=== PATIENT | female | born 1985 | race Caucasian/White ===

== ENCOUNTER 2016-09-14 10:20 | Observation (INO) ==
--- NOTE | 2016-09-14 10:40 | Emergency Department Note ---
Disposition Clinical Impression: Biliary colic, Intractable abdominal pain Disposition: Admitted As Inpatient Condition: Good Referrals: Mason Mobley MD [Primary Care Provider] - Forms: Work/School Release, ED Satisfaction Letter Abdominal Pain HPI - General Chief Complaint: ED Abdominal Pain Stated Complaint: Gallbladder issues Source: patient Mode of arrival: ambulatory Limitations: no limitations Nursing Notes Reviewed: Yes Vital Signs Reviewed: Yes - History of Present Illness HPI Narrative: Is a 30-year-old female with a history of biliary colic is here for pain and vomiting. She states the vomiting is he starts when she has the severe pain she has had 2 attacks in the last month. She has a elective cholecystectomy scheduled for tomorrow with Dr. Gus Ruiz. The pain started about an hour or 2 ago she gets pain more in the gastric area which she states comes and goes in waves she describes the pain as sharp stabbing intense 10 out of 10 pain. She has also had several episodes of vomiting bile-type material before arrival in the ER Pain Scale: 8 Migration to: no migration Improves with: nothing Worsens with: nothing Associated symptoms: Reports: nausea, vomiting Treatments prior to arrival: none - Related Data Home Medications Medication Instructions Recorded Confirmed Lisinopril [Zestril] 20 mg PO DAILY 06/02/16 06/02/16 cephALEXin [Keflex] 500 mg PO TID 06/02/16 06/02/16 Allergies Allergy/AdvReac Type Severity Reaction Status Date / Time prednisone Allergy Hives Verified 09/14/16 10:23 topiramate [From Topamax] Allergy Hives Verified 09/14/16 10:23 All systems ED: reviewed and negative except as stated. Constitutional: Denies: fever, chills, weakness Respiratory: Denies: cough Abdominal Pain PMH - Past Medical History Medical history: Reports: hypertension Female Surgical History: Reports: no surgical history PYROMETALLURGICAL ENGINEER history: Reports: no PYROMETALLURGICAL ENGINEER history Psychiatric history: Reports: anxiety - Social History Smoking status: Never smoker Alcohol use: Reports: none, occasionally Drug use: Reports: none Physical Exam - General Limitations: no limitations General appearance: alert - Head Head exam: atraumatic, normocephalic, normal inspection - Eye Eye exam: Present: normal appearance, PERRL, EOMI - Expanded Eye Exam Pupils: Left: reactive - ENT ENT exam: normal exam, normal oropharynx, mucous membranes moist - Expanded ENT Exam External ear exam: Present: normal external inspection Mouth exam: Present: normal external inspection Teeth exam: Present: normal inspection Throat exam: Present: normal inspection - Neck Neck exam: Present: normal inspection, full ROM, trachea midline - Chest Chest inspection: Present: normal inspection, symmetric chest wall rise - Respiratory Respiratory exam: Present: normal lung sounds bilaterally - Cardiovascular Cardiovascular exam: Present: regular rate, normal rhythm, normal heart sounds - Abdominal Exam Abdominal exam: Present: soft, normal bowel sounds. Absent: distention, guarding, rebound Abdominal tenderness: Present: epigastrium, mild - Extremities Exam Extremities exam: Present: normal inspection, full ROM. Absent: tenderness, pedal edema - Expanded Upper Extremity Exam Shoulder exam: Present: normal inspection, full ROM Arm exam: Present: normal inspection, full ROM Elbow exam: Present: normal inspection, full ROM Forearm/Wrist exam: Present: normal inspection, full ROM Hand exam: Present: normal inspection, full ROM Vascular exam: Normal: capillary refill, radial pulse - Expanded Lower Extremity Exam Hip/Pelvis exam: Present: normal inspection, full ROM Upper leg exam: Present: normal inspection, full ROM Knee exam: Present: normal inspection, full ROM Lower leg exam: Present: normal inspection, full ROM Ankle exam: Present: normal inspection, full ROM Foot/toe exam: Present: normal inspection, full ROM Neurovascular/Tendon exam: Absent: motor deficit, sensory deficit, tendon deficit - Back Exam Back exam: Present: normal inspection, full ROM. Absent: tenderness - Neurological Exam Neurological exam: Present: alert, oriented X3 - Expanded Neurological Exam Patient oriented to: Present: person, place, time Coma Scale Eye Opening: Spontaneous Coma Scale Motor Response: Obeys Commands Coma Scale Verbal Response: Oriented Coma Scale Total: 15 - Psychiatric Psychiatric exam: Present: normal affect, normal mood - Skin Skin exam: Present: warm, dry, intact, normal color Course - Consultations Consultation #1: dr. cartwright will admit to his service Time: 11:34 Vital Signs Temperature 98.2 F 09/14/16 10:20 Pulse Rate 118 09/14/16 10:20 Respiratory Rate 16 09/14/16 10:20 Blood Pressure 143/105 09/14/16 10:20 O2 Sat by Pulse Oximetry 96 09/14/16 10:20 Temperature 98.2 F 09/14/16 10:20 Pulse Rate 101 09/14/16 11:11 Respiratory Rate 18 09/14/16 11:11 Blood Pressure 129/94 09/14/16 11:11 O2 Sat by Pulse Oximetry 95 09/14/16 11:11 Oxygen Delivery Oxygen Delivery Room Air Abdominal Pain - Differential Diagnosis Differential Diagnosis: Likely: acute appendicitis, calculus of kidney, constipation, diverticulitis, gastroenteritis, small bowel obstruction - Medical Records Medical records reviewed: Yes I reviewed the patient's medical records. - Lab Data Lab results reviewed: Yes I reviewed the patient's lab results. Result diagrams: 09/14/16 11:00 09/14/16 11:00 Lab Results 09/14/16 09/14/16 Range/Units 11:00 11:00 WBC 11.5 H (4.3-11.1) K/mcL RBC 5.11 H (3.82-4.97) M/mcL Hgb 14.5 D (11.5-15.4) g/dL Hct 43.0 (35.3-44.9) % MCV 84.1 (83.0-100.0) fL MCH 28.4 (28.0-33.3) pg MCHC 33.7 (31.6-35.5) g/dL RDW 12.4 (11.5-14.5) % Plt Count 215 (140-400) K/mcL MPV 11.4 (9.4-12.4) fL Immature Gran % 0.3 (0-4) % Seg Neutrophils % 86.7 % Lymphocytes % 8.5 % Monocytes % 3.9 % Eosinophils % 0.3 % Basophils % 0.3 % Neutrophils # 10.0 H (1.6-8.9) K/mcL Lymphocytes # 1.0 (0.6-4.6) K/mcL Monocytes # 0.5 (0.0-1.3) K/mcL Eosinophils # 0.0 (0.0-0.6) K/mcL Basophils # 0.0 (0.0-0.2) K/mcL Sodium 139 (136-145) mEq/L Potassium 4.0 (3.5-4.5) mEq/L Chloride 104 (98-109) mEq/L Carbon Dioxide 25 (19-29) mEq/L BUN 11 (7-20) mg/dL Creatinine 0.77 (0.57-1.11) mg/dL Est GFR ( Amer) > 60 (> 60) Est GFR (Non-Af Amer) > 60 (> 60) BUN/Creatinine Ratio 14 (6-26) Glucose 102 H (70-99) mg/dL Calculated Osmolality 288 (280-300) Calcium 9.2 (8.6-10.8) mg/dL Total Bilirubin 0.4 (0.2-1.2) mg/dL Direct Bilirubin 0.2 (0.0-0.5) mg/dL Indirect Bilirubin 0.2 (0.0-1.2) mg/dL AST 17 (5-34) Units/L ALT 15 (0-55) Units/L Alkaline Phosphatase 87 (38-126) Units/L Serum Total Protein 7.3 (6.0-8.3) g/dL Albumin 3.9 (3.5-5.0) g/dL Globulin 3.4 (2.4-3.5) g/dL Albumin/Globulin Ratio 1.1 (1.1-2.2) Amylase 99 (25-125) Units/L Lipase 29 (8-78) Units/L
[2016-09-14] MEDS ORDERED: Ondansetron 4 MG/2 ML VIAL IVP ONE (10:46)
[2016-09-14] MEDS ORDERED: *HR* HYDROmorphone (PF) 1 MG/ML SYRINGE IVP ONE (10:47)
[2016-09-14 11:12] LABS: Basophils % 0.3 %; Eosinophils % 0.3 %; Immature Granulocytes % 0.3 % (0-4); Lymphocytes % 8.5 %; Mean Corpuscular HGB Conc 33.7 g/dL (31.6-35.5); Mean Corpuscular Hemoglobin 28.4 pg (28.0-33.3); Mean Corpuscular Volume 84.1 fL (83.0-100.0); Mean Platelet Volume 11.4 fL (9.4-12.4); Monocytes # 0.5 K/mcL (0.0-1.3); Monocytes % 3.9 %; Platelet Count 215 K/mcL (140-400); Red Blood Count 5.11 M/mcL (3.82-4.97); Red Cell Distribution Width 12.4 % (11.5-14.5); Segmented Neutrophils % 86.7 %
[2016-09-14 11:13] LABS: Hemoglobin 14.5 g/dL (11.5-15.4)
[2016-09-14 11:26] LABS: Alanine Aminotransferase 15 Units/L (0-55); Albumin 3.9 g/dL (3.5-5.0); Albumin/Globulin Ratio 1.1 (1.1-2.2); Alkaline Phosphatase 87 Units/L (38-126); Amylase 99 Units/L (25-125); Aspartate Amino Transferase 17 Units/L (5-34); BUN/Creatinine Ratio 14 (6-26); Bilirubin,Direct 0.2 mg/dL (0.0-0.5); Bilirubin,Indirect 0.2 mg/dL (0.0-1.2); Bilirubin,Total 0.4 mg/dL (0.2-1.2); Blood Urea Nitrogen 11 mg/dL (7-20); Calcium 9.2 mg/dL (8.6-10.8); Carbon Dioxide 25 mEq/L (19-29); Chloride 104 mEq/L (98-109); Globulin 3.4 g/dL (2.4-3.5); Glucose 102 mg/dL (70-99); Lipase 29 Units/L (8-78); Osmolality,Calculated 288 (280-300); Sodium 139 mEq/L (136-145); Total Protein 7.3 g/dL (6.0-8.3); eGFR For African Americans > 60 (> 60); eGFR For Non-African Americans > 60 (> 60)
[2016-09-14] MEDS ORDERED: Naloxone 0.4 MG/ML INJ IVP PRN (13:31)
[2016-09-14] MEDS ORDERED: Ondansetron 4 MG/2 ML VIAL IVP PRN (13:31)
[2016-09-14] MEDS ORDERED: *HR* HYDROmorphone (PF) 1 MG/ML SYRINGE IVP PRN (13:35)
[2016-09-14] MEDS ORDERED: *HR* OxyCODONE/APAP 5/325 TABLET PO PRN (13:36)
[2016-09-14] MEDS: 0.9 % Sodium Chloride 1,000 ML IVC SCH (14:12)
--- NOTE | 2016-09-14 14:36 | General Surg History&Physical ---
Date of Encounter: 09/14/16 Time of Encounter: 14:20 Assessment and Plan (1) Biliary dyskinesia Current Visit: Yes Status: Acute The assessment and plan as outlined above was discussed with the patient and/or family members who expressed understanding and agreement. All questions were answered. Clear liquid diet Nothing by mouth after midnight IV fluids Supportive care and pain control Incentive spirometer every 1 hour while awake Risks, benefits, alternatives, expected outcomes have been reviewed with the patient and she is agreement to proceed with a robotic-assisted cholecystectomy with Dr. Henry in the next 24 hours. Serum completed on September 132016 was negative (2) DVT prophylaxis Current Visit: Yes Status: Acute The assessment and plan as outlined above was discussed with the patient and/or family members who expressed understanding and agreement. All questions were answered. Ambulate hallways 3 times a day Intermittent compression to bilateral lower extremities loss prevention consultant to the OR for tomorrow. History of Present Illness Chief complaint: RUQ/Epigastric pain HPI: Ms. Carrasco is a 30 year old female with a past medical history significant for headaches, chronic neck pain, seasonal allergies, anxiety, hypertension. She has seen Dr. Henry in the outpatient surgical office for complaints of epigastric and right upper quadrant abdominal pain. She was scheduled for an elective cholecystectomy on 09/15/[address] Henry for biliary dyskinesia. The patient states that she has had a 2 gallbladder attacks since being seen in the surgical office. She states that she had recurrence of her symptoms this morning. She states that the pain was severe in the epigastric and right upper quadrant region. She did have nausea and vomiting without hematemesis or coffee -ground emesis. She admits to alternating diarrhea and constipation and states that her last vomiting was yesterday. Denies any melena or hematochezia. She does admit to heartburn. Denies any chills but states that she does feel fevered at times. She has not checked her temperature. She states that she did eat pizza for dinner last night and fatty foods do tend to aggravate her symptoms. She denies any shortness of breath or chest pains. We will admit her to the hospital for supportive care and plan for proceeding with her cholecystectomy as planned on 09/15/[address] Henry. Past Med Surg Social Fam HX - Past Medical History Source: patient, old records reviewed Medical history: hypertension, other (Headaches, chronic neck pain, seasonal allergies) Psychiatric history: anxiety - Past Surgical History Surgical History: other ([place] teeth extraction) - Social History Smoking Status: Never smoker Smokeless Tobacco Status: No Alcohol use: none Drug use: none Current living situation: Home - Independent Activity Level: Independent ambulation - Family History Father Hx Family Cardiac Disorders: Yes (HTN) Medications and Allergies DiphenhydraMINE [Benadryl] 25 mg PO HS PRN 09/14/16 [History] Eletriptan HBr [Relpax] 20 mg PO DAILY PRN 09/14/16 [History] LORazepam [Ativan] 0.25 - 0.5 mg PO BID PRN 09/14/16 [History] Lisinopril [Zestril] 5 mg PO DAILY 09/14/16 [History] Naproxen [Naprosyn] 500 mg PO BID PRN 09/14/16 [History] Norgestimate-Ethinyl Estradiol [Trinessa Tablet] 1 tab PO DAILY 09/14/16 [ History] Allergies prednisone Allergy (Verified 09/14/16 10:23) Hives topiramate [From Topamax] Allergy (Verified 09/14/16 10:23) Hives Review of Systems All systems PM: reviewed and no additional remarkable complaints except as stated (in the HPI) All systems PM: A 10-system review of systems was performed and is negative for pertinent findings except as documented above in the HPI. General Surgery Exam Initial Vital Signs Temp Pulse Resp BP Pulse Ox 98.2 F 118 16 143/105 96 09/14/16 10:20 09/14/16 10:20 09/14/16 10:20 09/14/16 10:20 09/14/16 10:20 - General physical appearance well developed, well nourished, no distress - Eyes normal ocular movement - ENT normal mucosa, atraumatic, normocephalic - Neck trachea midline - Respiratory normal expansion, normal respiratory effort, clear to auscultation - Cardiovascular Cardiovascular exam: Present: RRR, 15, 16 - Abdomen Abdomen general surgery: Present: bowel sounds present, soft, tender Abdominal Tenderness: Present: epigastic, RUQ - Integumentary Integumentary general surgery: Present: warm and dry - Neurologic Present: CN 2-12 grossly intact - Musculoskeletal Present: normal gait, normal posture - Psychiatric Psychiatric general surgery: Present: appropriate, oriented to person, oriented to place, oriented to time, speech is normal, memory intact Results - Labs 09/14/16 11:00 09/14/16 11:00 Abnormal lab results WBC 11.5 K/mcL (4.3-11.1) H 09/14/16 11:00 RBC 5.11 M/mcL (3.82-4.97) H 09/14/16 11:00 Neutrophils # 10.0 K/mcL (1.6-8.9) H 09/14/16 11:00 Glucose 102 mg/dL (70-99) H 09/14/16 11:00 All other labs normal. - Attending Attestation I examined this patient and my medical decision-making was reviewed with the ENVIRONMENTAL RESEARCH PROJECT MANAGER/PA/Advanced Practice Nurse/Resident Physician. I agree with the documented findings, disposition and treatment plan as described except to the extent set forth below.
--- NOTE | 2016-09-14 20:10 | Anesthesia Evaluation PreOp ---
Date of Encounter: 09/14/16 Time of Encounter: 22:07 - Past History Planned Operation: Robotic Laparoscopic Cholecystectomy Cardiac History: HTN Pulmonary History: Denies Any Significant HX DIRECTOR OF DIGITAL PLATFORMS History: Other (headaches) Other Medical History: Other (anxiety) Anesthesia History: Past Anesthesia (no prior surgery) Test: Negative (09/13/2016) Alcohol Use: none Drug use: none Medications and Allergies DiphenhydraMINE [Benadryl] 25 mg PO HS PRN 09/14/16 [History] Eletriptan HBr [Relpax] 20 mg PO DAILY PRN 09/14/16 [History] LORazepam [Ativan] 0.25 - 0.5 mg PO BID PRN 09/14/16 [History] Lisinopril [Zestril] 5 mg PO DAILY 09/14/16 [History] Naproxen [Naprosyn] 500 mg PO BID PRN 09/14/16 [History] Norgestimate-Ethinyl Estradiol [Trinessa Tablet] 1 tab PO DAILY 09/14/16 [ History] Allergies prednisone Allergy (Verified 09/14/16 10:23) Hives topiramate [From Topamax] Allergy (Verified 09/14/16 10:23) Hives - Meds/Allergy Pre-op Review Medications Reviewed: Yes Allergies Reviewed: Yes Beta Blockers on Current Med List: No Anesthesia Results - Labs 09/14/16 11:00 09/14/16 11:00 Laboratory Tests 09/13/16 17:40 Serum , Qual Negative - Imaging EKG: report reviewed (09/07/2016 SR) Anesthesia Exam Vital Signs/O2 Sat, Most Current Temp Pulse Resp BP Pulse Ox 97.5 F L 84 16 108/72 96 09/14/16 15:50 09/14/16 15:50 09/14/16 15:50 09/14/16 15:50 09/14/16 15:50 Height: 5'6''/1.68 m Weight: 147 lbs/66.678 kg Pain Scale: 0 Pain Scale Used: Numeric (1 - 10) - HEENT Pupil (Motor): EOMI Mallampati: II Teeth: Normal Oral Opening: Greater than 3 - DIRECTOR OF DIGITAL PLATFORMS LOC: Oriented DIRECTOR OF DIGITAL PLATFORMS Motor: Normal RUE, Normal LUE, Normal RLE, Normal LLE, Normal Face DIRECTOR OF DIGITAL PLATFORMS Sensory: Normal: RUE, LUE, RLE, LLE, Face - Cardiac Rhythm: Regular Murmur: None - Pulmonary Breath Sounds: bilateral Clear Respiratory Effort: Symmetrical Anesthesia Assess/Plan ASA Score: 2 Modified [place] Scale for Level of Consciousness: Cooperative, oriented, and tranquil Anesthetic Plan: General Monitoring Plan: Standard Monitors Recovery Plan: PACU
[2016-09-15] MEDS: 0.9 % Sodium Chloride 1,000 ML IVC SCH (07:21)
[2016-09-15] MEDS ORDERED: cefOXitin 2,000 MG in D5% in Water (Mini-Bag+) 100 ML IVPB ONE (08:00)
[2016-09-15] MEDS ORDERED: *HR* HYDROmorphone (PF) 1 MG/ML SYRINGE ONE (10:48)
[2016-09-15] MEDS: *HR* HYDROmorphone (PF) 1 MG/ML SYRINGE IVP PRN ×2 (10:49→11:03)
[2016-09-15] MEDS ORDERED: *HR* Labetalol 100 MG/20 ML MDV IVP PRN (10:52)
[2016-09-15] MEDS ORDERED: *HR* Promethazine 25 MG/ML VIAL IVP PRN (10:52)
[2016-09-15] MEDS ORDERED: Ondansetron 4 MG/2 ML VIAL IVP ONE (10:52)
--- NOTE | 2016-09-15 11:50 | Discharge Summary ---
Date of Encounter: 09/15/16 Time of Encounter: 11:47 - Discharge Diagnosis (1) Biliary dyskinesia Priority: Primary Status: Resolved - Discharge Medications Prescriptions: OxyCODONE/APAP 5/325 [Percocet 5/325 MG] 1 each PO Q6HR PRN #30 tablet PRN Reason: Pain Ibuprofen [Motrin] 800 mg PO Q8HR PRN #50 tablet PRN Reason: Pain Docusate [Colace] 100 mg PO BID #30 capsule Home Medications: DiphenhydraMINE [Benadryl] 25 mg PO HS PRN 09/14/16 [History] Eletriptan HBr [Relpax] 20 mg PO DAILY PRN 09/14/16 [History] LORazepam [Ativan] 0.25 - 0.5 mg PO BID PRN 09/14/16 [History] Lisinopril [Zestril] 5 mg PO DAILY 09/14/16 [History] Naproxen [Naprosyn] 500 mg PO BID PRN 09/14/16 [History] Norgestimate-Ethinyl Estradiol [Trinessa Tablet] 1 tab PO DAILY 09/14/16 [ History] Docusate [Colace] 100 mg PO BID #30 capsule 09/15/16 [Rx] Ibuprofen [Motrin] 800 mg PO Q8HR PRN #50 tablet 09/15/16 [Rx] OxyCODONE/APAP 5/325 [Percocet 5/325 MG] 1 each PO Q6HR PRN #30 tablet 09/15/16 [Rx] Allergies/Adverse Reactions: Allergies prednisone Allergy (Verified 09/14/16 10:23) Hives topiramate [From Topamax] Allergy (Verified 09/14/16 10:23) Hives General Surgery Exam Initial Vital Signs Temp Pulse Resp BP Pulse Ox 98.2 F 118 16 143/105 96 09/14/16 10:20 09/14/16 10:20 09/14/16 10:20 09/14/16 10:20 09/14/16 10:20 Date of admission: 09/14/16 11:45 Primary care physician: Mason Mobley MD [facility] Anticipated date of discharge: 09/15/16 - Patient Status Disposition: Home, Self-Care Condition: Good Overall status at discharge: patient is back to baseline - Discharge Instructions Follow Up With: Rizwan Henry DO [Partnered Physician] - 09/26/16 4:30 pm (surgery follow-up) Mason Mobley MD [Primary Care Provider] - (as needed) Additional Instructions: #1 may shower, no tub bath for 2 weeks #2 wash incisions with soap and water and pat dry daily #3 no lifting, pushing, pulling more than 15 pounds for the next 2 weeks #4 no driving until off narcotics for 24 hours and able to safely react in the car #5 may climb stairs - Diet and Activity Activity: other (See additional instructions above) Diet: advance to your usual diet - Hospital Course Hospital course: Ms. Carrasco is a 30 year old female presented to the hospital with complaints of RUQ abdominal pain with associated nausea/vomiting. She has been seen and evaluated by Dr. Henry in the outpatient surgical office for recurrent diliary dyskinesia. She was admitted to the hospital for supportive care and pain control. She was taken to the operating room for a robotic assisted cholecystectomy with Dr. Henry. We will begin discharge planning to home when meets discharge critieria including vitals signs are stable and afebrile, tolerating liquids without nausea/vomiting, pain is well controlled, voiding and ambulating without difficulty. Plan for outpatient follow-up in the next 10- 14 days. - Time Spent with Patient Total time spent providing and/or coordinating discharge services: Less than 30 minutes Labs on day of discharge: Labs from last 24 hours 09/15/16 05:36 POC Glucose 87 - Attending Attestation I examined this patient and my medical decision-making was reviewed with the BENDING ROLL HAND/PA/Advanced Practice Nurse/Resident Physician. I agree with the documented findings, disposition and treatment plan as described except to the extent set forth below.
[2016-09-15] MEDS ORDERED: *HR* HYDROmorphone (PF) 1 MG/ML SYRINGE IVP PRN (11:51)
[2016-09-15] MEDS ORDERED: *HR* OxyCODONE/APAP 5/325 TABLET PO PRN (11:51)
[2016-09-15] MEDS ORDERED: (Eletriptan Hbr [Relpax] 20 MG) PO PRN (11:51)
[2016-09-15] MEDS ORDERED: Naloxone 0.4 MG/ML INJ IVP PRN (11:51)
[2016-09-15] MEDS ORDERED: *HR* LORazepam 0.5 MG TABLET PO PRN (11:51)
[2016-09-15] MEDS ORDERED: 0.9 % Sodium Chloride 1,000 ML IVC SCH (11:51)
[2016-09-15] MEDS ORDERED: Ondansetron 4 MG/2 ML VIAL IVP PRN (11:51)
[2016-09-15 13:19] VITALS: BP 126/80
--- NOTE | 2016-09-20 11:27 | Operative Note ---
Date of procedure: 09/20/16 Pre-op diagnosis: Biliary dyskinesia Post-op diagnosis: same Procedure: Endoscopic cholecystectomy cholangiogram Anesthesia: JUSTOA Surgeon: Rizwan Henry Estimated blood loss (cc): 5 Condition: stable Disposition: same day Procedure in Detail: After informed consent this patient was taken the operating room placed supine position. After adequate sedation anesthesia the abdomen was prepped and draped. A proper timeout was performed. Two towel clamps are placed at the umbilicus and a Veres needle was inserted into the abdomen. A 5 mm incision was made at the umbilicus. A 12 mm incision was made in the subxiphoid region. Two 5 mm incisions were made in the right upper quadrant that were 4 finger breadths and 6 finger breadths below the costal margin. The gallbladder was identified, retracted anteriorly and cephalad, and the infundibulum was skeletonized. The cystic duct was easily identified and was dissected free. A ductotomy was created in the cystic duct. A taut catheter was placed within the cystic duct and clipped. A cholangiogram was performed. Contrast filled the cystic duct, common hepatic duct, hepatic radicles, and the distal common bile duct. There was flow of contrast into the duodenum. Once this was confirmed the clippers removed, the taut catheter was removed as well, and the cystic duct was clipped distally. The cystic duct was then transected with scissors. The gallbladder was resected off the liver surface. There was excellent hemostasis. The gallbladder was then retrieved through the 12 mm cannula site. At this point the abdomen was suctioned dry and the pneumoperitoneum was then evacuated. All ports were removed. The 12 mm cannula site was closed with an 0 Vicryl suture in [id number] fashion. The skin was closed with 4-0 Vicryl suture. Dermabond was placed as well. All instrument counts and needle counts are correct in the operation. The patient tolerated the procedure well and was transferred to the PACU in stable condition.
== END 2016-09-15 13:20 | disposition home or self-care (01) ==
LOC: 3ANU 10:20 → EMEROO 10:20 → 3ANU 12:08
PROVIDERS: ADMIT Surgery; ATTEND Surgery

== ENCOUNTER 2016-09-23 05:18 | Inpatient (IN) ==
[2016-09-23] MEDS ORDERED: Dicyclomine 20 MG/2 ML AMPUL IM STA (05:26)
[2016-09-23] MEDS ORDERED: Ondansetron 4 MG/2 ML VIAL IVP STA (05:26)
[2016-09-23] MEDS ORDERED: 0.9 % Sodium Chloride 1,000 ML IVC ONE (05:36)
[2016-09-23] MEDS ORDERED: *HR* HYDROmorphone (PF) 1 MG/ML SYRINGE IVP ONE ×2 (05:38→07:34)
--- NOTE | 2016-09-23 05:39 | Emergency Department Note ---
Disposition Clinical Impression: Abdominal pain, Vomiting Disposition: Still a Patient Condition: Good Referrals: NO,PCP [Non-Partnered Physician] - Forms: ED Satisfaction Letter Time of Disposition: 07:27 General Adult HPI - General Chief complaint: ED Nausea/Vomiting/Diarrhea Stated complaint: s/p gall bladder surgery sat// N/V// abd pain Time Seen by Provider: 09/23/16 05:25 Source: patient Limitations: no limitations Nursing Notes Reviewed: Yes Vital Signs Reviewed: Yes - History of Present Illness HPI Narrative: Female patient complaining of 24 hours of nausea vomiting and diarrhea. She is status post cholecystectomy one week ago. Dr. Henry did her surgery. She reports a possible fever at home. She states she is staying ear thermometer that was a child's that read greater than 102. She is also complaining of some upper epigastric pain. She states this is consistent with pain that she has had before her gallbladder surgery. Pain Scale: 10 - Related Data Home Medications Medication Instructions Recorded Confirmed DiphenhydraMINE [Benadryl] 25 mg PO HS PRN 09/14/16 09/14/16 Eletriptan HBr [Relpax] 20 mg PO DAILY PRN 09/14/16 09/14/16 LORazepam [Ativan] 0.25 - 0.5 mg PO BID PRN 09/14/16 09/14/16 Lisinopril [Zestril] 5 mg PO DAILY 09/14/16 09/14/16 Naproxen [Naprosyn] 500 mg PO BID PRN 09/14/16 09/14/16 Norgestimate-Ethinyl Estradiol 1 tab PO DAILY 09/14/16 09/14/16 [Trinessa Tablet] Previous Rx's Medication Instructions Recorded Docusate [Colace] 100 mg PO BID #30 capsule 09/15/16 Ibuprofen [Motrin] 800 mg PO Q8HR PRN #50 tablet 09/15/16 OxyCODONE/APAP 5/325 [Percocet 1 each PO Q6HR PRN #30 tablet 09/15/16 5/325 MG] Allergies Allergy/AdvReac Type Severity Reaction Status Date / Time prednisone Allergy Hives Verified 09/23/16 05:24 topiramate [From Topamax] Allergy Hives Verified 09/23/16 05:24 All systems ED: reviewed and negative except as stated. Constitutional: Reports: fever. Denies: chills Eyes: Denies: vision change ENT ED: Denies: congestion Cardiovascular: Denies: chest pain, palpitations, syncope Respiratory: Denies: cough, dyspnea, wheezes Gastrointestinal: Reports: abdominal pain (Epigastric), nausea, vomiting (For 24 hours), diarrhea Genitourinary: Denies: urgency, dysuria, frequency, hematuria Musculoskeletal: Denies: back pain, neck pain Integumentary: Denies: rash Neurological: Denies: headache, weakness Past Medical History - Past Medical History Medical history: Reports: hypertension, other Surgical history: Reports: other ([place] teeth extraction) Psychiatric history: Reports: anxiety 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 Absent: scleral icterus - ENT ENT exam: normal exam, normal oropharynx - Neck Neck exam: Present: normal inspection, full ROM - Chest Chest inspection: Present: normal inspection, symmetric chest wall rise. Absent : tenderness - Respiratory Respiratory exam: Present: normal lung sounds bilaterally. Absent: respiratory distress, wheezes - Cardiovascular Cardiovascular exam: Present: regular rate, normal rhythm, normal heart sounds - Abdominal Exam Abdominal exam: Present: soft, tenderness (Epigastric region as well as suprapubic and left lower quadrant.). Absent: distention, guarding, rebound, rigidity, organomegaly - Extremities Exam Extremities exam: Present: normal inspection, full ROM, normal capillary refill. Absent: tenderness, pedal edema - Back Exam Back exam: Present: normal inspection, full ROM. Absent: tenderness - Neurological Exam Neurological exam: Present: alert, oriented X3 - Psychiatric Psychiatric exam: Present: normal affect, normal mood - Skin Skin exam: Present: warm, dry, intact, normal color Course Course Narrative: Female patient presenting to the emergency department complaining of 24-hour history of abdominal pain nausea vomiting and diarrhea. She is status post cholecystectomy of one week ago. She states Dr. Alaniz did her surgery. She states she had no complications until about 24 hours ago. She states she cannot keep anything down at this time. She states that she has intermittent very sharp pain in her upper abdomen. She points to her epigastric area. Patient appears to be in pain. She is leaning forward holding her abdomen and a vomit bag. She denies any shortness of breath or chest pain. She reports a possible fever at home of 102.3. She states that they used an ear thermometer for a child and she understands that this could have been off. She is not febrile while she is here however she is tachycardic. Her lung sounds are clear heart tones are normal. Her abdomen is soft however she guards and complains of excruciating pain when palpating her epigastric area. She has no overt right upper quadrant or left upper quadrant pain. She does have some tenderness over her suprapubic region and left lower quadrant. We will give patient pain medication as well as antinausea medication. We will get a basic lab workup and scan patient's abdomen. She is agreeable with this plan. - Consultations Consultation #1: Assessment with Dr. Henry. He states he has not the on-call physician. I discussed that it was his patient. He expressed understanding. He states he will call Dr. Moyer. Vital Signs Temperature 97.5 F L 09/23/16 05:20 Pulse Rate 134 09/23/16 05:20 Respiratory Rate 18 09/23/16 05:20 Blood Pressure 150/76 09/23/16 05:20 O2 Sat by Pulse Oximetry 95 09/23/16 05:20 Temperature 97.5 F L 09/23/16 05:20 Pulse Rate 86 09/23/16 06:44 Respiratory Rate 16 09/23/16 06:44 Blood Pressure 116/72 09/23/16 06:44 O2 Sat by Pulse Oximetry 95 09/23/16 05:20 Oxygen Delivery Oxygen Delivery Room Air Medical Decision Making - Lab Data Result diagrams: 09/23/16 05:40 09/23/16 05:40 Lab Results 09/23/16 09/23/16 09/23/16 Range/Units 05:40 05:40 05:40 WBC 15.3 H (4.3-11.1) K/mcL RBC 5.37 H (3.82-4.97) M/mcL Hgb 15.3 (11.5-15.4) g/dL Hct 44.6 (35.3-44.9) % MCV 83.1 (83.0-100.0) fL MCH 28.5 (28.0-33.3) pg MCHC 34.3 (31.6-35.5) g/dL RDW 12.7 (11.5-14.5) % Plt Count 300 (140-400) K/mcL MPV 10.8 (9.4-12.4) fL Immature Gran % 0.4 (0-4) % Seg Neutrophils % 88.2 % Lymphocytes % 7.9 % Monocytes % 3.1 % Eosinophils % 0.2 % Basophils % 0.2 % Neutrophils # 13.5 H (1.6-8.9) K/mcL Lymphocytes # 1.2 (0.6-4.6) K/mcL Monocytes # 0.5 (0.0-1.3) K/mcL Eosinophils # 0.0 (0.0-0.6) K/mcL Basophils # 0.0 (0.0-0.2) K/mcL Immature Plt Fraction 6.0 (1.1-6.1) % Sodium 138 (136-145) mEq/L Potassium 3.6 (3.5-4.5) mEq/L Chloride 104 (98-109) mEq/L Carbon Dioxide 23 (19-29) mEq/L BUN 10 (7-20) mg/dL Creatinine 0.81 (0.57-1.11) mg/dL Est GFR ( Amer) > 60 (> 60) Est GFR (Non-Af Amer) > 60 (> 60) BUN/Creatinine Ratio 12 (6-26) Glucose 138 H (70-99) mg/dL Calculated Osmolality 287 (280-300) Calcium 9.4 (8.6-10.8) mg/dL Total Bilirubin 0.7 (0.2-1.2) mg/dL AST 16 (5-34) Units/L ALT 18 (0-55) Units/L Alkaline Phosphatase 92 (38-126) Units/L Serum Total Protein 7.8 (6.0-8.3) g/dL Albumin 3.9 (3.5-5.0) g/dL Globulin 3.9 H (2.4-3.5) g/dL Albumin/Globulin Ratio 1.0 L (1.1-2.2) Lipase 29 (8-78) Units/L Urine Color Dark Yellow (Yellow) Urine Clarity Clear (Clear) Urine pH 6.0 (5.0-8.0) pH Units Ur Specific [place] > 1.030 H (1.010-1.025) Urine Protein 30 H (Neg-Trace) mg/dL Urine Glucose (UA) Normal (Normal) mg/dL Urine Ketones Trace H (Negative) mg/dL Urine Blood Negative (Negative) Urine Nitrite Negative (Negative) Urine Bilirubin Negative (Negative) Urine Urobilinogen Normal (Normal) mg/dL Ur Leukocyte Esterase Negative (Negative) Urine Microscopic RBC 0-3 (0-3) per hpf Urine Microscopic WBC 0-3 (0-3) per hpf Ur Squamous Epith Cells Many H (None-Few) per lpf Urine Bacteria None Seen (None-Few) per hpf Hyaline Casts Few (None-Few) per lpf Ur Culture Indicated? NO (NO) - Radiology Data Radiology results reviewed: Yes I reviewed the patient's radiology results. Abdomen/Pelvis CT 09/23/16 05:39 IMPRESSION: 1. Findings are most consistent with an acute enterocolitis, likely an active Crohn's flare up/inflammatory bowel disease, though an infectious enterocolitis is also a diagnostic consideration. There is no evidence of pneumatosis, perforation, free air, or bowel obstruction. There is a moderate amount of free fluid within the right lower quadrant pelvis, though no walled-off abscess is seen. 2. Patient status post cholecystectomy with mild postoperative fat stranding the gallbladder fossa, though no evidence of a postoperative fluid collection or biloma. D/ / Devang Man MD / Devang Man MD Interpreting Provider: Devang Man MD Attestation Statement - Attestation Attestation: I examined this patient and my medical decision-making was reviewed with the Resident Physician. I agree with the documented findings, disposition and treatment plan as described except to the extent set forth below. One week status post laparoscopic cholecystectomy. Has vomiting and diarrhea. She is having flatus. Temperature 102.3 at home, afebrile here. Has an appointment to see her surgeon on Sunday, so she could not wait any longer. Complains of diffuse abdominal pain, worse in the right upper quadrant and epigastrium. Having trouble keeping fluids down. Emesis is yellow, nonbloody, nonbilious. No symptoms of GI bleeding. On exam, she is sitting up holding an emesis bag appears somewhat uncomfortable but nontoxic. Surgical wounds are clean, dry and intact. Abdomen is diffusely tender without peritonitis, most tender in the right upper quadrant and epigastrium. Bowel sounds are not audible. Workup initiated, treatment initiated. Workup will likely not be completed before changes shift, anticipate handing patient off to Dr. La at 0700.
[2016-09-23 05:52] LABS: Basophils % 0.2 %; Eosinophils % 0.2 %; Hematocrit 44.6 % (35.3-44.9); Hemoglobin 15.3 g/dL (11.5-15.4); Immature Granulocytes % 0.4 % (0-4); Lymphocytes # 1.2 K/mcL (0.6-4.6); Lymphocytes % 7.9 %; Mean Corpuscular HGB Conc 34.3 g/dL (31.6-35.5); Mean Corpuscular Hemoglobin 28.5 pg (28.0-33.3); Mean Corpuscular Volume 83.1 fL (83.0-100.0); Mean Platelet Volume 10.8 fL (9.4-12.4); Monocytes # 0.5 K/mcL (0.0-1.3); Monocytes % 3.1 %; Neutrophils # 13.5 K/mcL (1.6-8.9); Platelet Count 300 K/mcL (140-400); Red Blood Count 5.37 M/mcL (3.82-4.97); Red Cell Distribution Width 12.7 % (11.5-14.5); Segmented Neutrophils % 88.2 %
[2016-09-23 06:05] LABS: Alanine Aminotransferase 18 Units/L (0-55); Albumin 3.9 g/dL (3.5-5.0); Alkaline Phosphatase 92 Units/L (38-126); Aspartate Amino Transferase 16 Units/L (5-34); BUN/Creatinine Ratio 12 (6-26); Bilirubin,Total 0.7 mg/dL (0.2-1.2); Blood Urea Nitrogen 10 mg/dL (7-20); Calcium 9.4 mg/dL (8.6-10.8); Carbon Dioxide 23 mEq/L (19-29); Chloride 104 mEq/L (98-109); Globulin 3.9 g/dL (2.4-3.5); Glucose 138 mg/dL (70-99); Lipase 29 Units/L (8-78); Osmolality,Calculated 287 (280-300); Potassium 3.6 mEq/L (3.5-4.5); Sodium 138 mEq/L (136-145); Total Protein 7.8 g/dL (6.0-8.3); eGFR For African Americans > 60 (> 60); eGFR For Non-African Americans > 60 (> 60)
[2016-09-23 06:45] LABS: Bilirubin,Urine Negative (Negative); Blood,Urine Negative (Negative); Clarity,Urine Clear (Clear); Color,Urine Dark Yellow (Yellow); Glucose,Urine (UA) Normal (Normal); Ketones,Urine Trace mg/dL (Negative); Leukocyte Esterase,Urine Negative (Negative); Nitrite,Urine Negative (Negative); Protein,Urine 30 mg/dL (Neg-Trace); Specific Gravity,Urine > 1.030 (1.010-1.025); Urobilinogen,Urine Normal (Normal)
[2016-09-23 06:48] LABS: Bacteria,Urine None Seen per hpf (None-Few); Hyaline Casts,Urine Few per lpf (None-Few); RBC,Urine 0-3 per hpf (0-3); Squamous Epithelial Cell,Urine Many per lpf (None-Few); WBC,Urine 0-3 per hpf (0-3)
--- NOTE | 2016-09-23 07:34 | Emergency Department Note ---
Disposition Clinical Impression: Enterocolitis Abdominal pain Qualifiers: Abdominal location: unspecified location Qualified Code(s): R10.9 - Unspecified abdominal pain Vomiting Qualifiers: Vomiting type: unspecified Vomiting Intractability: non-intractable Nausea presence: unspecified Qualified Code(s): R11.10 - Vomiting, unspecified Disposition: Admitted As Inpatient Condition: Good Referrals: NO,PCP [Non-Partnered Physician] - Forms: ED Satisfaction Letter Time of Disposition: 08:09 General Adult HPI - General Chief complaint: ED Nausea/Vomiting/Diarrhea Stated complaint: s/p gall bladder surgery sat// N/V// abd pain Time Seen by Provider: 09/23/16 05:25 Source: patient Limitations: no limitations - History of Present Illness Pain Scale: 5 - Related Data Home Medications Medication Instructions Recorded Confirmed DiphenhydraMINE [Benadryl] 25 mg PO HS PRN 09/14/16 09/14/16 Eletriptan HBr [Relpax] 20 mg PO DAILY PRN 09/14/16 09/14/16 LORazepam [Ativan] 0.25 - 0.5 mg PO BID PRN 09/14/16 09/14/16 Lisinopril [Zestril] 5 mg PO DAILY 09/14/16 09/14/16 Naproxen [Naprosyn] 500 mg PO BID PRN 09/14/16 09/14/16 Norgestimate-Ethinyl Estradiol 1 tab PO DAILY 09/14/16 09/14/16 [Trinessa Tablet] Previous Rx's Medication Instructions Recorded Docusate [Colace] 100 mg PO BID #30 capsule 09/15/16 Ibuprofen [Motrin] 800 mg PO Q8HR PRN #50 tablet 09/15/16 OxyCODONE/APAP 5/325 [Percocet 1 each PO Q6HR PRN #30 tablet 09/15/16 5/325 MG] Allergies Allergy/AdvReac Type Severity Reaction Status Date / Time prednisone Allergy Hives Verified 09/23/16 05:24 topiramate [From Topamax] Allergy Hives Verified 09/23/16 05:24 Constitutional: Reports: fever. Denies: chills Eyes: Denies: vision change ENT ED: Denies: congestion Cardiovascular: Denies: chest pain, palpitations, syncope Respiratory: Denies: cough, dyspnea, wheezes Gastrointestinal: Reports: abdominal pain (Epigastric), nausea, vomiting (For 24 hours), diarrhea Genitourinary: Denies: urgency, dysuria, frequency, hematuria Musculoskeletal: Denies: back pain, neck pain Integumentary: Denies: rash Neurological: Denies: headache, weakness Past Medical History - Past Medical History Medical history: Reports: hypertension, other Surgical history: Reports: other ([place] teeth extraction) Psychiatric history: Reports: anxiety TRACKMAN history: 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 TRACKMAN history - Social History Smoking Status: Never smoker Smokeless Tobacco Status: No Alcohol use: Reports: none Drug use: Reports: none Physical Exam - General Limitations: no limitations General appearance: alert, in no apparent distress Course Vital Signs Temperature 97.5 F L 09/23/16 05:20 Pulse Rate 134 09/23/16 05:20 Respiratory Rate 18 09/23/16 05:20 Blood Pressure 150/76 09/23/16 05:20 O2 Sat by Pulse Oximetry 95 09/23/16 05:20 Temperature 97.5 F L 09/23/16 05:20 Pulse Rate 90 09/23/16 08:07 Respiratory Rate 16 09/23/16 08:07 Blood Pressure 127/83 09/23/16 08:07 O2 Sat by Pulse Oximetry 98 09/23/16 08:07 Oxygen Delivery Oxygen Delivery Room Air Medical Decision Making - Lab Data Result diagrams: 09/23/16 05:40 09/23/16 05:40 Lab Results 09/23/16 09/23/16 09/23/16 Range/Units 05:40 05:40 05:40 WBC 15.3 H (4.3-11.1) K/mcL RBC 5.37 H (3.82-4.97) M/mcL Hgb 15.3 (11.5-15.4) g/dL Hct 44.6 (35.3-44.9) % MCV 83.1 (83.0-100.0) fL MCH 28.5 (28.0-33.3) pg MCHC 34.3 (31.6-35.5) g/dL RDW 12.7 (11.5-14.5) % Plt Count 300 (140-400) K/mcL MPV 10.8 (9.4-12.4) fL Immature Gran % 0.4 (0-4) % Seg Neutrophils % 88.2 % Lymphocytes % 7.9 % Monocytes % 3.1 % Eosinophils % 0.2 % Basophils % 0.2 % Neutrophils # 13.5 H (1.6-8.9) K/mcL Lymphocytes # 1.2 (0.6-4.6) K/mcL Monocytes # 0.5 (0.0-1.3) K/mcL Eosinophils # 0.0 (0.0-0.6) K/mcL Basophils # 0.0 (0.0-0.2) K/mcL Immature Plt Fraction 6.0 (1.1-6.1) % Sodium 138 (136-145) mEq/L Potassium 3.6 (3.5-4.5) mEq/L Chloride 104 (98-109) mEq/L Carbon Dioxide 23 (19-29) mEq/L BUN 10 (7-20) mg/dL Creatinine 0.81 (0.57-1.11) mg/dL Est GFR ( Amer) > 60 (> 60) Est GFR (Non-Af Amer) > 60 (> 60) BUN/Creatinine Ratio 12 (6-26) Glucose 138 H (70-99) mg/dL Calculated Osmolality 287 (280-300) Calcium 9.4 (8.6-10.8) mg/dL Total Bilirubin 0.7 (0.2-1.2) mg/dL AST 16 (5-34) Units/L ALT 18 (0-55) Units/L Alkaline Phosphatase 92 (38-126) Units/L Serum Total Protein 7.8 (6.0-8.3) g/dL Albumin 3.9 (3.5-5.0) g/dL Globulin 3.9 H (2.4-3.5) g/dL Albumin/Globulin Ratio 1.0 L (1.1-2.2) Lipase 29 (8-78) Units/L Serum , Qual (Negative) Urine Color Dark Yellow (Yellow) Urine Clarity Clear (Clear) Urine pH 6.0 (5.0-8.0) pH Units Ur Specific [place] > 1.030 H (1.010-1.025) Urine Protein 30 H (Neg-Trace) mg/dL Urine Glucose (UA) Normal (Normal) mg/dL Urine Ketones Trace H (Negative) mg/dL Urine Blood Negative (Negative) Urine Nitrite Negative (Negative) Urine Bilirubin Negative (Negative) Urine Urobilinogen Normal (Normal) mg/dL Ur Leukocyte Esterase Negative (Negative) Urine Microscopic RBC 0-3 (0-3) per hpf Urine Microscopic WBC 0-3 (0-3) per hpf Ur Squamous Epith Cells Many H (None-Few) per lpf Urine Bacteria None Seen (None-Few) per hpf Hyaline Casts Few (None-Few) per lpf Ur Culture Indicated? NO (NO) 09/23/16 Range/Units 07:21 WBC (4.3-11.1) K/mcL RBC (3.82-4.97) M/mcL Hgb (11.5-15.4) g/dL Hct (35.3-44.9) % MCV (83.0-100.0) fL MCH (28.0-33.3) pg MCHC (31.6-35.5) g/dL RDW (11.5-14.5) % Plt Count (140-400) K/mcL MPV (9.4-12.4) fL Immature Gran % (0-4) % Seg Neutrophils % % Lymphocytes % % Monocytes % % Eosinophils % % Basophils % % Neutrophils # (1.6-8.9) K/mcL Lymphocytes # (0.6-4.6) K/mcL Monocytes # (0.0-1.3) K/mcL Eosinophils # (0.0-0.6) K/mcL Basophils # (0.0-0.2) K/mcL Immature Plt Fraction (1.1-6.1) % Sodium (136-145) mEq/L Potassium (3.5-4.5) mEq/L Chloride (98-109) mEq/L Carbon Dioxide (19-29) mEq/L BUN (7-20) mg/dL Creatinine (0.57-1.11) mg/dL Est GFR ( Amer) (> 60) Est GFR (Non-Af Amer) (> 60) BUN/Creatinine Ratio (6-26) Glucose (70-99) mg/dL Calculated Osmolality (280-300) Calcium (8.6-10.8) mg/dL Total Bilirubin (0.2-1.2) mg/dL AST (5-34) Units/L ALT (0-55) Units/L Alkaline Phosphatase (38-126) Units/L Serum Total Protein (6.0-8.3) g/dL Albumin (3.5-5.0) g/dL Globulin (2.4-3.5) g/dL Albumin/Globulin Ratio (1.1-2.2) Lipase (8-78) Units/L Serum , Qual Negative (Negative) Urine Color (Yellow) Urine Clarity (Clear) Urine pH (5.0-8.0) pH Units Ur Specific [place] (1.010-1.025) Urine Protein (Neg-Trace) mg/dL Urine Glucose (UA) (Normal) mg/dL Urine Ketones (Negative) mg/dL Urine Blood (Negative) Urine Nitrite (Negative) Urine Bilirubin (Negative) Urine Urobilinogen (Normal) mg/dL Ur Leukocyte Esterase (Negative) Urine Microscopic RBC (0-3) per hpf Urine Microscopic WBC (0-3) per hpf Ur Squamous Epith Cells (None-Few) per lpf Urine Bacteria (None-Few) per hpf Hyaline Casts (None-Few) per lpf Ur Culture Indicated? (NO) Attestation Statement - Attestation Attestation: Care of patient assumed from at 7 AM pending discussion with the on- call surgeon. The case was discussed with by the resident physician Dr. Bnaks and the surgeon agrees to evaluate the patient in the emergency department 08:05: Dr. Moyer has evaluated the patient in the emergency department and excepts patient for admission to his service
[2016-09-23] MEDS ORDERED: *HR* HYDROmorphone (PF) 1 MG/ML SYRINGE IVP PRN (08:13)
--- NOTE | 2016-09-23 08:24 | General Surg History&Physical ---
<Lula Thompson - Last Filed: 09/23/16 21:04> Date of Encounter: 09/23/16 Time of Encounter: 08:23 Assessment and Plan (1) Enterocolitis Current Visit: Yes Status: Acute The patient presents with signs and symptoms of enterocolitis with clinical findings that correlate to CT scan of the abdomen. Patient recently underwent lap cholecystectomy with Dr. Henry and had prior antibiotic therapy which may predispose her to C.diff enterocolitis; other enteropathogens can not be excluded at this time. Pending laboratory studies. Inflammatory changes on CT warrant further investigation into Crohns disease. Pending antibody testing. Patient does have positive bowel sounds on exam most likely correlating to chronic etiology. Abdomen/Pelvis CT 09/23/16 05:39 IMPRESSION: 1. Findings are most consistent with an acute enterocolitis, likely an active Crohn's flare up/inflammatory bowel disease, though an infectious enterocolitis is also a diagnostic consideration. There is no evidence of pneumatosis, perforation, free air, or bowel obstruction. There is a moderate amount of free fluid within the right lower quadrant and pelvis, though no walled-off abscess is seen. 2. Patient is status post cholecystectomy with mild postoperative fat stranding within the gallbladder fossa, though no evidence of a postoperative fluid collection or biloma. Plan: Infectious vs Inflammatory enterocolitis Bowel rest. Nothing by mouth. (May consider TPN on Sunday. Will need PICC.) Supportive care and pain control IV fluids at [75] mL per hour IV antibiotics Zosyn 3.375 Q8hr Oral antibiotics metronidazole 500 mg PO Q6hr (May add lactobacillus tablets to encourage normal healthy segundo) PPI therapy: Patoprazole 40 mg IVP daily Daily activity encouraged Repeat abdominal exams daily to assess for clinical progress. Would like to treat patient with IV methylprednisolone 12-15 every 6 hours; however, patient states that she is not sure about steroids as she had a round of them before in conjunction with her Topamax and she had acute episode of delirium. Patient will decide tomorrow whether she would like to initiate therapy. - Pending markers for IBD: MPO/PR3 (ANCA) antibodies -Stool panel pending: ova/parasites/enteropathogens -May consider PICC consult and TPN Sunday09/25/16 GI referral Sunday: Patient will need further investigation into etiology of enterocolitis. She may require wireless capsule endoscopy or possibly colonoscopy with intubation of the ileum and to allow further visualization to evaluate for mucosal inflammation/ulceration/skip lesions. The assessment and plan as outlined above was discussed with the patient and/or family members who expressed understanding and agreement. All questions were answered. (2) Status post cholecystectomy Current Visit: Yes Status: Acute The assessment and plan as outlined above was discussed with the patient and/or family members who expressed understanding and agreement. All questions were answered. History of Present Illness Chief complaint: Abdominal pain HPI: Ms. Carrasco is a 30 year old female with a past medical history of hypertension and anxiety and migraines who presents for evaluation of abdominal pain. Patient describes that approximately 24 hours ago she developed sudden onset severe abdominal tenderness described as sharp stabbing pains that occur intermittently at 10 out of 10 pain with persistent crampy abdominal pain at 8- 9 out of 10 pain described as originating in the epigastrium and radiating across the abdomen diffusely. There are no alleviating factors. Exacerbated with movement/ambulating. Associated symptoms include nausea, vomiting multiple 5-6 over the last 24 hours described as stomach contents/acid bile, diarrhea nonbloody and without pus over the past 24 hours since sudden onset of pain. Relevant history includes status post cholecystectomy one week ago with prior antibiotic use. Patient denies: Camping, hiking, ingesting foul water, exposure to new animals or new pets, uncooked seafood or shellfish, ingestion of home canned goods recently. Past Med Surg Social Fam HX - Past Medical History Medical history: hypertension, other Psychiatric history: anxiety - Past Surgical History Surgical History: other - Social History Smoking Status: Never smoker Smokeless Tobacco Status: No Alcohol use: none Drug use: none - Family History Father Hx Family Cardiac Disorders: Yes (HTN) Medications and Allergies DiphenhydraMINE [Benadryl] 25 mg PO HS PRN 09/14/16 [History] Eletriptan HBr [Relpax] 20 mg PO DAILY PRN 09/14/16 [History] LORazepam [Ativan] 0.25 - 0.5 mg PO BID PRN 09/14/16 [History] Lisinopril [Zestril] 5 mg PO DAILY 09/14/16 [History] Naproxen [Naprosyn] 500 mg PO BID PRN 09/14/16 [History] Norgestimate-Ethinyl Estradiol [Trinessa Tablet] 1 tab PO DAILY 09/14/16 [ History] Docusate [Colace] 100 mg PO BID #30 capsule 09/15/16 [Rx] Ibuprofen [Motrin] 800 mg PO Q8HR PRN #50 tablet 09/15/16 [Rx] OxyCODONE/APAP 5/325 [Percocet 5/325 MG] 1 tab PO Q6HR PRN 09/23/16 [History] Allergies prednisone Allergy (Verified 09/23/16 05:24) Hives topiramate [From Topamax] Allergy (Verified 09/23/16 05:24) Hives Review of Systems All systems PM: A 10-system review of systems was performed and is negative for pertinent findings except as documented above in the HPI. - Constitutional anorexia, chills - EENT Nose, mouth and throat: no dysphagia, no hoarseness, no throat swelling, no tongue swelling - Cardiovascular no chest pain, no dyspnea, no lightheadedness - Respiratory no cough, no hemoptysis, no wheezing - Gastrointestinal abdominal pain, bloating, cramping, diarrhea, nausea, vomiting, no belching, no dysphagia, no hematemesis, no hematochezia, no melena - Musculoskeletal no myalgias - Integumentary no erythema, no pruritus, no rash, no jaundice - Neurological no confusion, no convulsions, no disequilibrium, no syncope - Psychiatric anxiety - Endocrine no polydipsia, no polyphagia, no polyuria - Hematologic/Lymphatic no easy bleeding, no easy bruising, no lymphadenopathy - Allergic/Immunologic no wheezing General Surgery Exam Initial Vital Signs Temp Pulse Resp BP Pulse Ox 97.5 F L 134 18 150/76 95 09/23/16 05:20 09/23/16 05:20 09/23/16 05:20 09/23/16 05:20 09/23/16 05:20 - General physical appearance well developed, well nourished, severe distress, severe pain. negative: jaundice - ENT normal pinna, normal nares, normal mucosa, atraumatic, normocephalic, CN 2-12 grossly intact - Neck no masses, trachea midline, no venous distension - Respiratory normal expansion, normal respiratory effort, clear to auscultation - Cardiovascular Cardiovascular exam: Present: RRR, no murmurs/rubs/gallops. Absent: JVD - Abdomen Abdomen general surgery: Present: bowel sounds present, soft, tender Abdominal Tenderness: Present: diffusely - Incision Incision: Present: clean and dry, intact - Integumentary Integumentary general surgery: Present: warm and dry, no abnormal pigmentation. Absent: rash - Neurologic Present: CN 2-12 grossly intact, normal coordination, normal sensation - Musculoskeletal Present: normal gait, normal posture - Psychiatric Psychiatric general surgery: Present: A&Ox3, speech is normal, memory intact, tearful Results - Labs 09/23/16 05:40 09/23/16 05:40 Abnormal lab results WBC 15.3 K/mcL (4.3-11.1) H 09/23/16 05:40 RBC 5.37 M/mcL (3.82-4.97) H 09/23/16 05:40 Neutrophils # 13.5 K/mcL (1.6-8.9) H 09/23/16 05:40 Glucose 138 mg/dL (70-99) H 09/23/16 05:40 Globulin 3.9 g/dL (2.4-3.5) H 09/23/16 05:40 Albumin/Globulin Ratio 1.0 (1.1-2.2) L 09/23/16 05:40 Ur Specific [place] > 1.030 (1.010-1.025) H 09/23/16 05:40 Urine Protein 30 mg/dL (Neg-Trace) H 09/23/16 05:40 Urine Ketones Trace mg/dL (Negative) H 09/23/16 05:40 Ur Squamous Epith Cells Many per lpf (None-Few) H 09/23/16 05:40 Diabetes panel 09/23/16 Range/Units 05:40 Sodium 138 (136-145) mEq/L Potassium 3.6 (3.5-4.5) mEq/L Chloride 104 (98-109) mEq/L Carbon Dioxide 23 (19-29) mEq/L BUN 10 (7-20) mg/dL Creatinine 0.81 (0.57-1.11) mg/dL Glucose 138 H (70-99) mg/dL Calcium 9.4 (8.6-10.8) mg/dL AST 16 (5-34) Units/L ALT 18 (0-55) Units/L Alkaline Phosphatase 92 (38-126) Units/L Albumin 3.9 (3.5-5.0) g/dL Calcium panel 09/23/16 Range/Units 05:40 Calcium 9.4 (8.6-10.8) mg/dL Albumin 3.9 (3.5-5.0) g/dL Pituitary panel 09/23/16 Range/Units 05:40 Sodium 138 (136-145) mEq/L Potassium 3.6 (3.5-4.5) mEq/L Chloride 104 (98-109) mEq/L Carbon Dioxide 23 (19-29) mEq/L BUN 10 (7-20) mg/dL Creatinine 0.81 (0.57-1.11) mg/dL Glucose 138 H (70-99) mg/dL Calcium 9.4 (8.6-10.8) mg/dL Adrenal panel 09/23/16 Range/Units 05:40 Sodium 138 (136-145) mEq/L Potassium 3.6 (3.5-4.5) mEq/L Chloride 104 (98-109) mEq/L Carbon Dioxide 23 (19-29) mEq/L BUN 10 (7-20) mg/dL Creatinine 0.81 (0.57-1.11) mg/dL Glucose 138 H (70-99) mg/dL Calcium 9.4 (8.6-10.8) mg/dL Total Bilirubin 0.7 (0.2-1.2) mg/dL AST 16 (5-34) Units/L ALT 18 (0-55) Units/L Alkaline Phosphatase 92 (38-126) Units/L Albumin 3.9 (3.5-5.0) g/dL All other labs normal. <Arden Moyer - Last Filed: 09/24/16 06:37> Date of Encounter: 09/23/16 History of Present Illness HPI: Ms. Carrasco is a 30 year old female Review of Systems All systems PM: A 10-system review of systems was performed and is negative for pertinent findings except as documented above in the HPI. General Surgery Exam Initial Vital Signs Temp Pulse Resp BP Pulse Ox 97.5 F L 134 18 150/76 95 09/23/16 05:20 09/23/16 05:20 09/23/16 05:20 09/23/16 05:20 09/23/16 05:20 Results - Labs 09/23/16 05:40 09/23/16 05:40 Abnormal lab results WBC 15.3 K/mcL (4.3-11.1) H 09/23/16 05:40 RBC 5.37 M/mcL (3.82-4.97) H 09/23/16 05:40 Neutrophils # 13.5 K/mcL (1.6-8.9) H 09/23/16 05:40 ESR 30 mm/hr (0-15) H 09/23/16 05:40 Glucose 138 mg/dL (70-99) H 09/23/16 05:40 C-Reactive Protein 15 mg/L (Less than 5) H 09/23/16 05:40 Globulin 3.9 g/dL (2.4-3.5) H 09/23/16 05:40 Albumin/Globulin Ratio 1.0 (1.1-2.2) L 09/23/16 05:40 Ur Specific [place] > 1.030 (1.010-1.025) H 09/23/16 05:40 Urine Protein 30 mg/dL (Neg-Trace) H 09/23/16 05:40 Urine Ketones Trace mg/dL (Negative) H 09/23/16 05:40 Ur Squamous Epith Cells Many per lpf (None-Few) H 09/23/16 05:40 All other labs normal. - Attending Attestation I examined this patient and my medical decision-making was reviewed with the BICYCLE DESIGNER/PA/Advanced Practice Nurse/Resident Physician. I agree with the documented findings, disposition and treatment plan as described except to the extent set forth below. The patient is seen and evaluated. She is having abdominal discomfort similar to the pain that she had prior to cholecystectomy. I suspect that she has 2 independent problems. The first was an abnormal gallbladder which has been addressed the second is inflammatory enterocolitis. It is unclear whether this is infectious or autoimmune in origin. We will initiate a complete workup. She will be started on them. Antibiotic therapy as well as empiric steroid therapy. Further treatment plan based on her workup which is underway Arden Moyer MD FACS
[2016-09-23] MEDS: 0.9 % Sodium Chloride 1,000 ML IVC SCH ×2 (09:19→23:54)
[2016-09-23] MEDS: Piperacillin/Tazobactam 3.375 GM in D5% in Water (Mini-Bag+) 100 ML IVPB SCH ×3 (09:20→23:53)
[2016-09-23] MEDS: Pantoprazole 40 MG VIAL IVP SCH (09:21)
[2016-09-23] MEDS: Ondansetron 4 MG/2 ML VIAL IVP PRN (10:21)
[2016-09-23] MEDS: metroNIDAZOLE 500 MG TABLET PO SCH ×3 (12:17→23:53)
[2016-09-23 13:01] LABS: % Iron Saturation 27 % (15-50); Iron 128 mcg/dL (50-170); Transferrin 341 mg/dL (180-382)
[2016-09-23] MEDS: *HR* HYDROcodone/Acet 5/325 mg TABLET PO PRN (23:53)
[2016-09-24] MEDS: metroNIDAZOLE 500 MG TABLET PO SCH ×4 (05:17→23:09)
[2016-09-24 06:58] LABS: BUN/Creatinine Ratio 12 (6-26); Blood Urea Nitrogen 9 mg/dL (7-20); Calcium 8.1 mg/dL (8.6-10.8); Carbon Dioxide 24 mEq/L (19-29); Chloride 106 mEq/L (98-109); Glucose 84 mg/dL (70-99); Osmolality,Calculated 284 (280-300); Potassium 3.3 mEq/L (3.5-4.5); Sodium 138 mEq/L (136-145); eGFR For African Americans > 60 (> 60); eGFR For Non-African Americans > 60 (> 60)
[2016-09-24 07:06] LABS: Basophils % 0.4 %; Eosinophils # 0.1 K/mcL (0.0-0.6); Eosinophils % 1.2 %; Immature Granulocytes % 0.2 % (0-4); Lymphocytes # 2.4 K/mcL (0.6-4.6); Lymphocytes % 48.6 %; Mean Corpuscular HGB Conc 32.9 g/dL (31.6-35.5); Mean Corpuscular Hemoglobin 28.4 pg (28.0-33.3); Mean Corpuscular Volume 86.4 fL (83.0-100.0); Mean Platelet Volume 11.6 fL (9.4-12.4); Monocytes # 0.3 K/mcL (0.0-1.3); Neutrophils # 2.2 K/mcL (1.6-8.9); Platelet Count 212 K/mcL (140-400); Red Blood Count 4.05 M/mcL (3.82-4.97); Red Cell Distribution Width 12.8 % (11.5-14.5); Segmented Neutrophils % 43.6 %
--- NOTE | 2016-09-24 08:35 | General Surgery Progress Note ---
Date of Encounter: 09/24/16 Time of Encounter: 07:00 - Assessment and Plan (1) Enterocolitis Current Visit: Yes Status: Acute Infectious versus inflammatory enterocolitis The patient presents with signs and symptoms of enterocolitis with clinical findings that correlate to CT scan of the abdomen. Patient recently underwent lap cholecystectomy with Dr. Henry and had prior antibiotic therapy which may predispose her to C.diff enterocolitis; other enteropathogens can not be excluded at this time. Pending laboratory studies. Inflammatory changes on CT warrant further investigation into Crohns disease. Pending antibody testing. Patient does have positive bowel sounds on exam most likely correlating to chronic etiology. Bowel rest. Nothing by mouth. (May consider TPN on Sunday. Will need PICC.) Supportive care and pain control IV fluids at [75] mL per hour IV antibiotics Zosyn 3.375 Q8hr Oral antibiotics metronidazole 500 mg PO Q6hr (May add lactobacillus tablets to encourage normal healthy segundo) PPI therapy: Patoprazole 40 mg IVP daily Daily activity encouraged Repeat abdominal exams daily to assess for clinical progress. IV methylprednisolone 12-15 every 6 hours - Pending markers for IBD: MPO/PR3 (ANCA) antibodies -Stool panel pending: ova/parasites/enteropathogens -May consider PICC consult and TPN Sunday09/25/16 GI referral Sunday: Patient will need further investigation into etiology of enterocolitis. She may require wireless capsule endoscopy or possibly colonoscopy with intubation of the ileum and to allow further visualization to evaluate for mucosal inflammation/ulceration/skip lesions. The assessment and plan as outlined above was discussed with the patient and/or family members who expressed understanding and agreement. All questions were answered. (2) Status post cholecystectomy Current Visit: Yes Status: Acute Subjective Patient reports: no new complaints, feels better, still having pain, pain is less, voiding w/o difficulty, flatus, bowel movement, diarrhea, afebrile Narrative: Patient was seen and examined. She states that she feels much better today having less abdominal pain and tenderness although she still describes continued bloating and multiple episodes of loose stools that are small, urgent , slightly orange in color. Discussed starting methylprednisolone. Patient had her questions answered and she is agreeable to begin therapy today. Initially, she was hesitant because she thought she may have had an acute delirium event possibly related to prednisone in the past however, she is unsure because she was taking multiple medications at the time. No acute events overnight. Patient's been nothing by mouth. She has been up ambulating and using the restroom/voiding without difficulty. She reports that she still has nausea and belching. on physical examination patient's abdomen is soft minimal tender to palpation when compared to yesterday. There is no rebound, rigidity, guarding/peritoneal signs. Nonsurgical abdomen. Vitals stable. Afebrile. Patient is in good spirits and is very pleasant natured although she does have significant anxiety. Objective Vital Signs - Last 8 Hours Temp Pulse Resp BP Pulse Ox 09/24/16 08:15 98.4 F 62 18 109/70 98 09/24/16 03:46 98.0 F 68 14 115/78 98 09/24/16 00:39 98.7 F 75 14 114/76 97 Intake and Output 09/23/16 09/24/16 09/24/16 23:59 07:59 15:59 Intake Total 1100 / 1100 100 / 100 0 / 0 Output Total 150 / 150 300 / 300 0 / 0 Balance 950 / 950 -200 / -200 0 / 0 Intake: IV Fluids 1100 / 1100 100 / 100 0.9 % Sodium Chloride 1, 1000 / 1000 000 ML @ 75 mls/hr IVC . [id number] [facility] Rx#: [id number] Zosyn 3.375 GM In 100 / 100 100 / 100 Dextrose 5% (Minibag+) 100 ML 100 ML @ 25 mls/hr IVPB Q8HR [facility] Rx#: [id number] Oral 0 / 0 0 / 0 0 / 0 Output: Urine 150 / 150 300 / 300 0 / 0 Other: Weight 66.735 kg Blood Glucose* 83 85 Patient Weight 09/24/16 23:59 Weight 66.735 kg - General physical appearance well developed, well nourished, no distress, moderate pain - Eyes PERRL, normal ocular movement - ENT normal mucosa, atraumatic, normocephalic, CN 2-12 grossly intact - Neck Neck exam: no masses, trachea midline - Respiratory normal expansion, normal respiratory effort, clear to auscultation - Cardiovascular Cardiovascular exam: Present: RRR, no murmurs/rubs/gallops. Absent: JVD - Abdomen Abdomen: Present: bowel sounds present, soft, tender Abdominal Tenderness: diffusely - Integumentary no rash, no abnormal pigmentation - Neurologic CN 2-12 grossly intact, normal coordination, normal sensation - Musculoskeletal normal gait, normal posture - Psychiatric oriented to time, oriented to person, oriented to place, speech is normal, memory intact - Labs 09/25/16 05:01 09/25/16 05:01 Diabetes panel 09/24/16 Range/Units 05:49 Sodium 138 (136-145) mEq/L Potassium 3.3 L (3.5-4.5) mEq/L Chloride 106 (98-109) mEq/L Carbon Dioxide 24 (19-29) mEq/L BUN 9 (7-20) mg/dL Creatinine 0.78 (0.57-1.11) mg/dL Glucose 84 (70-99) mg/dL Calcium 8.1 L (8.6-10.8) mg/dL Calcium panel 09/24/16 Range/Units 05:49 Calcium 8.1 L (8.6-10.8) mg/dL Pituitary panel 09/24/16 Range/Units 05:49 Sodium 138 (136-145) mEq/L Potassium 3.3 L (3.5-4.5) mEq/L Chloride 106 (98-109) mEq/L Carbon Dioxide 24 (19-29) mEq/L BUN 9 (7-20) mg/dL Creatinine 0.78 (0.57-1.11) mg/dL Glucose 84 (70-99) mg/dL Calcium 8.1 L (8.6-10.8) mg/dL Adrenal panel 09/24/16 Range/Units 05:49 Sodium 138 (136-145) mEq/L Potassium 3.3 L (3.5-4.5) mEq/L Chloride 106 (98-109) mEq/L Carbon Dioxide 24 (19-29) mEq/L BUN 9 (7-20) mg/dL Creatinine 0.78 (0.57-1.11) mg/dL Glucose 84 (70-99) mg/dL Calcium 8.1 L (8.6-10.8) mg/dL Consult Discharge Plan - Plan Referrals: Mason Mobley MD [Primary Care Provider] - - Attending Attestation I examined this patient and my medical decision-making was reviewed with the OUTSIDE CUTTER HAND/PA/Advanced Practice Nurse/Resident Physician. I agree with the documented findings, disposition and treatment plan as described except to the extent set forth below. The patient is seen and evaluated on morning rounds. Her abdominal examination is tremendously improved. She is having flatus. There is no tenderness or peritoneal signs. She is started on steroid therapy today after appropriate testing. We will continue her antibiotics. We will plan on discussing her case on Sunday with her primary surgeon and plain clothes police officer. If she remains pain-free we will start clear liquids later this afternoon. Arden Moyer MD FACS
[2016-09-24 08:46] LABS: Hemoglobin 11.5 g/dL (11.5-15.4)
[2016-09-24] MEDS: Piperacillin/Tazobactam 3.375 GM in D5% in Water (Mini-Bag+) 100 ML IVPB SCH ×3 (10:18→23:09)
[2016-09-24] MEDS: Pantoprazole 40 MG VIAL IVP SCH (10:23)
[2016-09-24] MEDS: MethylPREDNISolone 40 MG/ML VIAL IVP SCH ×3 (13:15→23:09)
[2016-09-24] MEDS: Acetaminophen 325 MG TABLET PO PRN (15:00)
[2016-09-24] MEDS: 0.9 % Sodium Chloride 1,000 ML IVC SCH (15:47)
[2016-09-24] MEDS: Ondansetron 4 MG/2 ML VIAL IVP PRN (15:52)
[2016-09-25] MEDS: Acetaminophen 325 MG TABLET PO PRN (03:41)
[2016-09-25] MEDS: metroNIDAZOLE 500 MG TABLET PO SCH ×4 (05:20→23:06)
[2016-09-25] MEDS: 0.9 % Sodium Chloride 1,000 ML IVC SCH ×2 (05:20→20:20)
[2016-09-25] MEDS: MethylPREDNISolone 40 MG/ML VIAL IVP SCH ×4 (05:20→23:06)
[2016-09-25 06:01] LABS: Hematocrit 37.3 % (35.3-44.9); Hemoglobin 12.6 g/dL (11.5-15.4); Immature Granulocytes % 0.2 % (0-4); Lymphocytes # 0.9 K/mcL (0.6-4.6); Lymphocytes % 17.1 %; Mean Corpuscular HGB Conc 33.8 g/dL (31.6-35.5); Mean Corpuscular Hemoglobin 28.7 pg (28.0-33.3); Mean Platelet Volume 11.6 fL (9.4-12.4); Monocytes # 0.1 K/mcL (0.0-1.3); Neutrophils # 4.4 K/mcL (1.6-8.9); Platelet Count 243 K/mcL (140-400); Red Blood Count 4.39 M/mcL (3.82-4.97); Segmented Neutrophils % 80.7 %
[2016-09-25 06:16] LABS: BUN/Creatinine Ratio 6 (6-26); Blood Urea Nitrogen 5 mg/dL (7-20); Calcium 9.2 mg/dL (8.6-10.8); Carbon Dioxide 24 mEq/L (19-29); Chloride 108 mEq/L (98-109); Glucose 145 mg/dL (70-99); Osmolality,Calculated 290 (280-300); Potassium 3.6 mEq/L (3.5-4.5); Sodium 140 mEq/L (136-145); eGFR For African Americans > 60 (> 60); eGFR For Non-African Americans > 60 (> 60)
[2016-09-25] MEDS: Piperacillin/Tazobactam 3.375 GM in D5% in Water (Mini-Bag+) 100 ML IVPB SCH ×3 (08:19→23:07)
[2016-09-25] MEDS: Pantoprazole 40 MG VIAL IVP SCH (08:21)
--- NOTE | 2016-09-25 13:25 | Gastroenterology Consult Note ---
<LeonZaire valente Ivana - Last Filed: 09/25/16 13:22> Date of Encounter: 09/25/16 Time of Encounter: 11:30 - Assessment and plan (1) Abdominal pain Current Visit: Yes Status: Acute Assessment and plan: CT A/P most consistent with an acute enterocolitis, likely an active Crohn's flare up/inflammatory bowel disease, though an infectious enterocolitis is also a diagnostic consideration. Dr. Gastelum to review images today. Check ASCA and C.diff. ANCA pending. ESR 30 and CRP 15. Qualifiers: Abdominal location: generalized Qualified Code(s): R10.84 - Generalized abdominal pain (2) Enterocolitis Current Visit: Yes Status: Acute Assessment and plan: CT A/P most consistent with an acute enterocolitis, likely an active Crohn's flare up/inflammatory bowel disease, though an infectious enterocolitis is also a diagnostic consideration. Dr. Gastelum to review images today. Check ASCA and C.diff. ANCA pending. ESR 30 and CRP 15. (3) Status post cholecystectomy Current Visit: Yes Status: Acute - Time Spent With Patient Total time spent is greater than 50% in coordination of care (as documented) at patient's floor/unit and/or counseling patient: GI History of Present Illness - Data of Consult Patient: new to practice Consult date: 09/25/16 Requesting Physician: Arden Moyer MD - Consult Narrative Reason for consult: Inflammatory vs infectious enterocolitis History of present illness: Ms. Carrasco is a 30 year old female with PMHx of HTN and anxiety who presented to the ED for evaluation of abdominal pain, nausea, vomiting, and diarrhea. She is s/p cholecystectomy on 09/20/[address] Henry with prior antibiotic use. She reports vomiting 5-6 times in the 24 hours prior to admission. Her abdomen was diffusely tender, mostly in the RUQ and epigastric area. CT A/P most consistent with an acute enterocolitis, likely an active Crohn's flare up/ inflammatory bowel disease, though an infectious enterocolitis is also a diagnostic consideration. Procedures: None NSAIDs: Ibuprofen Anticoagulation: None Past Med Surg Social Fam HX - Past Medical History Medical history: hypertension, other Psychiatric history: anxiety - Past Surgical History Surgical History: other - Social History Smoking Status: Never smoker Smokeless Tobacco Status: No Alcohol use: none Drug use: none - Family History Father Hx Family Cardiac Disorders: Yes (HTN) - Gastrointestinal Gastrointestinal: Present: as per HPI - Constitutional Constitutional: as per HPI - EENT Eyes: as per HPI Ears: Present: as per HPI Nose, mouth and throat: Present: as per HPI - Cardiovascular Cardiovascular ROS: Present: as per HPI - Respiratory Respiratory IM: Present: as per HPI - Genitourinary Genitourinary: Absent: change in color, Urinary frequency - Neurological ROS Neurological GI: Present: as per HPI - Hematologic/Lymphatic Hematologic/Lymphatic pediatric: Present: as per HPI - Musculoskeletal Musculoskeletal ROS GI: Present: as per HPI - Integumentary Integumentary GI: Present: as per HPI - Psychiatric ROS Psychiatric GI: Present: as per HPI - Endocrine Endocrine IM: Present: as per HPI - Constitutional Vitals: Temp Pulse Resp BP Pulse Ox 98.2 F 80 18 131/81 98 09/25/16 10:55 09/25/16 10:55 09/25/16 10:55 09/25/16 10:55 09/25/16 10:55 General appearance: Present: cooperative, A&O X 3, no acute distress, answers questions appropriately - Head Head exam: Present: atraumatic, normocephalic - Eye Eye exam: Present: normal appearance, sclera anicteric - ENT ENT exam: Present: mucous membranes moist - Neck Neck exam general surgery: Present: normal inspection, trachea midline - Respiratory Respiratory exam: Present: CTAB. Absent: rales, rhonchi, wheezes - Cardiovascular Cardiovascular exam: Present: RRR, +S1, +S2 - GI/Abdominal GI/Abdominal exam: Present: soft, tenderness (Generalized), no peritoneal signs. Absent: distended, firm, guarding Additional comments: surgical scars s/p lap digna - Rectal Rectal exam: Present: deferred - Extremities Exam Extremities exam: Present: warm - Neurological Exam Neurological exam: Present: no focal deficits - Psychiatric Psychiatric exam: Present: normal affect, normal mood - Skin Skin exam: Present: dry, intact, normal color, warm Results - Labs CBC & Chem 7: 09/25/16 05:01 09/25/16 05:01 Labs: Last Result ESR 30 mm/hr (0-15) H 09/23/16 05:40 Calcium 9.2 mg/dL (8.6-10.8) 09/25/16 05:01 Iron 128 mcg/dL (50-170) 09/23/16 05:40 % Saturation 27 % (15-50) 09/23/16 05:40 Transferrin 341 mg/dL (180-382) 09/23/16 05:40 C-Reactive Protein 15 mg/L (Less than 5) H 09/23/16 05:40 Vitamin B12 213 pg/mL (213-816) 09/23/16 05:40 Folate 15.0 ng/mL (7.0-31.4) 09/23/16 05:40 Entire Visit Hgb 12.6 g/dL (11.5-15.4) 09/25/16 05:01 Hct 37.3 % (35.3-44.9) 09/25/16 05:01 Total Bilirubin 0.7 mg/dL (0.2-1.2) 09/23/16 05:40 AST 16 Units/L (5-34) 09/23/16 05:40 ALT 18 Units/L (0-55) 09/23/16 05:40 Lipase 29 Units/L (8-78) 09/23/16 05:40 Folate 15.0 ng/mL (7.0-31.4) 09/23/16 05:40 Consult Discharge Plan - Plan Referrals: Mason Mobley MD [Primary Care Provider] - <Livia Gastelum - Last Filed: 09/25/16 17:40> Date of Encounter: 09/25/16 Time of Encounter: 17:00 - Time Spent With Patient Total time spent is greater than 50% in coordination of care (as documented) at patient's floor/unit and/or counseling patient: GI History of Present Illness - Data of Consult Requesting Physician: Arden Moyer MD - Consult Narrative History of present illness: Ms. Carrasco is a 30 year old female - Constitutional Vitals: Temp Pulse Resp BP Pulse Ox 98.2 F 85 16 130/76 97 09/25/16 14:47 09/25/16 14:47 09/25/16 14:47 09/25/16 14:47 09/25/16 14:47 Results - Labs CBC & Chem 7: 09/25/16 05:01 09/25/16 05:01 Labs: Last Result ESR 30 mm/hr (0-15) H 09/23/16 05:40 Calcium 9.2 mg/dL (8.6-10.8) 09/25/16 05:01 Iron 128 mcg/dL (50-170) 09/23/16 05:40 % Saturation 27 % (15-50) 09/23/16 05:40 Transferrin 341 mg/dL (180-382) 09/23/16 05:40 C-Reactive Protein 15 mg/L (Less than 5) H 09/23/16 05:40 Vitamin B12 213 pg/mL (213-816) 09/23/16 05:40 Folate 15.0 ng/mL (7.0-31.4) 09/23/16 05:40 Entire Visit Hgb 12.6 g/dL (11.5-15.4) 09/25/16 05:01 Hct 37.3 % (35.3-44.9) 09/25/16 05:01 Total Bilirubin 0.7 mg/dL (0.2-1.2) 09/23/16 05:40 AST 16 Units/L (5-34) 09/23/16 05:40 ALT 18 Units/L (0-55) 09/23/16 05:40 Lipase 29 Units/L (8-78) 09/23/16 05:40 Folate 15.0 ng/mL (7.0-31.4) 09/23/16 05:40 - Attending Attestation I examined this patient and my medical decision-making was reviewed with the HOT SAW HELPER/PA/Advanced Practice Nurse/Resident Physician. I agree with the documented findings, disposition and treatment plan as described except to the extent set forth below. Patient seen. Patient with a history of symptomatic disease status post gallbladder surgery. Now was admitted because of the recurrence of her epigastric abdominal pain and had a CAT scan done that showed colitis and also terminal ileitis. Per patient usually she goes to the toilet 3 times a week denies any long-standing history of diarrhea and no other GI symptom other than her recurrent pain due to gallbladder disease. Denies family history of Crohn disease. At This point the finding on the CAT scans are nonspecific but we will have to rule out underlying IBD. Patient will like to have a colonoscopy done as an outpatient, we will schedule that in the next 2-3 weeks
--- NOTE | 2016-09-25 16:55 | General Surgery Progress Note ---
Date of Encounter: 09/25/16 Time of Encounter: 16:54 - Assessment and Plan (1) Enterocolitis Current Visit: Yes Status: Acute A consult to Dr. Gastelum has been made. Patient to be evaluated for potential Crohn 's colitis. Subjective Patient reports: other (Patient continues to have abdominal discomfort. CT findings were consistent with enterocolitis.) Objective Vital Signs - Last 8 Hours Temp Pulse Resp BP Pulse Ox 09/25/16 14:47 98.2 F 85 16 130/76 97 09/25/16 10:55 98.2 F 80 18 131/81 98 Intake and Output 09/25/16 09/25/16 09/25/16 07:59 15:59 23:59 Intake Total 1460 / 1460 580 / 580 Output Total 900 / 900 0 / 0 Balance 560 / 560 580 / 580 Intake: IV Fluids 1100 / 1100 100 / 100 0.9 % Sodium Chloride 1, 1000 / 1000 000 ML @ 75 mls/hr IVC . [id number] [facility] Rx#: [id number] Zosyn 3.375 GM In 100 / 100 100 / 100 Dextrose 5% (Minibag+) 100 ML 100 ML @ 25 mls/hr IVPB Q8HR [facility] Rx#: [id number] Oral 360 / 360 480 / 480 Output: Urine 900 / 900 0 / 0 Other: Meal Breakfast Percent of Meal Consumed 5% # Voids 1 Weight 66.735 kg Patient Weight 09/25/16 23:59 Weight 66.735 kg - General physical appearance well developed, well nourished - Eyes PERRL - ENT normal nares - Abdomen Abdomen: Present: bowel sounds present, soft, tender - Labs 09/25/16 05:01 09/25/16 05:01 Diabetes panel 09/25/16 Range/Units 05:01 Sodium 140 (136-145) mEq/L Potassium 3.6 (3.5-4.5) mEq/L Chloride 108 (98-109) mEq/L Carbon Dioxide 24 (19-29) mEq/L BUN 5 L (7-20) mg/dL Creatinine 0.78 (0.57-1.11) mg/dL Glucose 145 H (70-99) mg/dL Calcium 9.2 (8.6-10.8) mg/dL Calcium panel 09/25/16 Range/Units 05:01 Calcium 9.2 (8.6-10.8) mg/dL Pituitary panel 09/25/16 Range/Units 05:01 Sodium 140 (136-145) mEq/L Potassium 3.6 (3.5-4.5) mEq/L Chloride 108 (98-109) mEq/L Carbon Dioxide 24 (19-29) mEq/L BUN 5 L (7-20) mg/dL Creatinine 0.78 (0.57-1.11) mg/dL Glucose 145 H (70-99) mg/dL Calcium 9.2 (8.6-10.8) mg/dL Adrenal panel 09/25/16 Range/Units 05:01 Sodium 140 (136-145) mEq/L Potassium 3.6 (3.5-4.5) mEq/L Chloride 108 (98-109) mEq/L Carbon Dioxide 24 (19-29) mEq/L BUN 5 L (7-20) mg/dL Creatinine 0.78 (0.57-1.11) mg/dL Glucose 145 H (70-99) mg/dL Calcium 9.2 (8.6-10.8) mg/dL Consult Discharge Plan - Plan Referrals: Mason Mobley MD [Primary Care Provider] -
[2016-09-25] MEDS: *HR* HYDROcodone/Acet 5/325 mg TABLET PO PRN (23:06)
[2016-09-26] MEDS: MethylPREDNISolone 40 MG/ML VIAL IVP SCH ×2 (05:59→12:30)
[2016-09-26] MEDS: metroNIDAZOLE 500 MG TABLET PO SCH ×2 (05:59→12:30)
[2016-09-26 06:11] LABS: Hematocrit 35.3 % (35.3-44.9); Hemoglobin 11.5 g/dL (11.5-15.4); Immature Granulocytes % 0.2 % (0-4); Lymphocytes # 1.3 K/mcL (0.6-4.6); Lymphocytes % 16.4 %; Mean Corpuscular HGB Conc 32.6 g/dL (31.6-35.5); Mean Corpuscular Hemoglobin 27.9 pg (28.0-33.3); Mean Corpuscular Volume 85.7 fL (83.0-100.0); Mean Platelet Volume 11.5 fL (9.4-12.4); Monocytes # 0.2 K/mcL (0.0-1.3); Neutrophils # 6.4 K/mcL (1.6-8.9); Platelet Count 252 K/mcL (140-400); Red Blood Count 4.12 M/mcL (3.82-4.97); Red Cell Distribution Width 13.1 % (11.5-14.5); Segmented Neutrophils % 80.4 %
[2016-09-26 06:24] LABS: BUN/Creatinine Ratio 7 (6-26); Calcium 8.7 mg/dL (8.6-10.8); Carbon Dioxide 25 mEq/L (19-29); Chloride 109 mEq/L (98-109); Glucose 119 mg/dL (70-99); Osmolality,Calculated 292 (280-300); Potassium 3.5 mEq/L (3.5-4.5); Sodium 142 mEq/L (136-145); eGFR For African Americans > 60 (> 60); eGFR For Non-African Americans > 60 (> 60)
[2016-09-26 06:27] LABS: Blood Urea Nitrogen 5 mg/dL (7-20)
[2016-09-26] MEDS: Pantoprazole 40 MG VIAL IVP SCH (07:41)
[2016-09-26] MEDS: Piperacillin/Tazobactam 3.375 GM in D5% in Water (Mini-Bag+) 100 ML IVPB SCH (07:41)
[2016-09-26 11:24] VITALS: BP 137/88
--- NOTE | 2016-09-26 11:53 | Discharge Summary ---
Date of Encounter: 09/26/16 Time of Encounter: 10:25 - Discharge Diagnosis (1) Enterocolitis Priority: Primary Status: Acute - Discharge Medications Home Medications: DiphenhydraMINE [Benadryl] 25 mg PO HS PRN 09/14/16 [History] Eletriptan HBr [Relpax] 20 mg PO DAILY PRN 09/14/16 [History] LORazepam [Ativan] 0.25 - 0.5 mg PO BID PRN 09/14/16 [History] Lisinopril [Zestril] 5 mg PO DAILY 09/14/16 [History] Naproxen [Naprosyn] 500 mg PO BID PRN 09/14/16 [History] Norgestimate-Ethinyl Estradiol [Trinessa Tablet] 1 tab PO DAILY 09/14/16 [ History] Docusate [Colace] 100 mg PO BID #30 capsule 09/15/16 [Rx] Ibuprofen [Motrin] 800 mg PO Q8HR PRN #50 tablet 09/15/16 [Rx] OxyCODONE/APAP 5/325 [Percocet 5/325 MG] 1 tab PO Q6HR PRN 09/23/16 [History] Allergies/Adverse Reactions: Allergies prednisone Allergy (Verified 09/23/16 05:24) Hives topiramate [From Topamax] Allergy (Verified 09/23/16 05:24) Hives General Surgery Exam Initial Vital Signs Temp Pulse Resp BP Pulse Ox 97.5 F L 134 18 150/76 95 09/23/16 05:20 09/23/16 05:20 09/23/16 05:20 09/23/16 05:20 09/23/16 05:20 - Abdomen Abdomen general surgery: Present: soft, tender Abdominal Tenderness: Present: LUQ Date of admission: 09/23/16 08:30 Primary care physician: Mason Mobley MD Consults: 09/24/16 17:59 Consult to Gastroenterology [CONS] Routine Consulting Provider: Gastroenterology Estefany Reason for Consult: Inflammatory versus infectious enterocolitis. Patient may require capsule endoscopy. Please evaluate. Call Completed: No 09/25/16 16:52 Consult to Gastroenterology [CONS] Routine Consulting Provider: Gastroenterjordon Allison Reason for Consult: enterocolitis Time Notified: 15:30 Call Completed: Yes Discharging clinician: Rizwan Henry Anticipated date of discharge: 09/26/16 - Patient Status Disposition: Home, Self-Care Condition: Good - Discharge Instructions Follow Up With: Mason Mobley MD [Primary Care Provider] - - Hospital Course Hospital course: Ms. Carrasco is a 30 year old female - Time Spent with Patient Total time spent providing and/or coordinating discharge services: Labs on day of discharge: Labs from last 24 hours 09/26/16 09/26/16 04:54 04:54 WBC 8.0 RBC 4.12 Hgb 11.5 Hct 35.3 MCV 85.7 MCH 27.9 L MCHC 32.6 RDW 13.1 Plt Count 252 MPV 11.5 Immature Gran % 0.2 Seg Neutrophils % 80.4 Lymphocytes % 16.4 Monocytes % 3.0 Eosinophils % 0.0 Basophils % 0.0 Neutrophils # 6.4 Lymphocytes # 1.3 Monocytes # 0.2 Eosinophils # 0.0 Basophils # 0.0 Sodium 142 Potassium 3.5 Chloride 109 Carbon Dioxide 25 BUN 5 L Creatinine 0.70 Est GFR ( Amer) > 60 Est GFR (Non-Af Amer) > 60 BUN/Creatinine Ratio 7 Glucose 119 H Calculated Osmolality 292 Calcium 8.7 - Impressions Enterocolitis
[2016-09-26] MEDS: 0.9 % Sodium Chloride 1,000 ML IVC SCH (12:31)
[2016-09-28 14:51] LABS: Myeloperoxidase Ab 1 AU/mL (0-19); Serine Protease-3 Antibody 0 AU/mL (0-19)
[2016-09-28 14:55] LABS: Saccharomyces cerevisiae IgA 4.6 Units (0.0-24.9)
== END 2016-09-26 14:07 | disposition home or self-care (01) | DRG 392 ==
LOC: 3ANU 05:18 → EMEROO 05:18 → 3ANU 08:29
PROVIDERS: ADMIT Surgery; ATTEND Surgery